=== PATIENT | female | born 1990 | race Caucasian/White ===

== ENCOUNTER → 2016-07-20 | Outpatient (CLI) | payer BC, OTHER | END | disposition home or self-care (01) | LOC: LABWHC1 16:45 | PROVIDERS: ATTEND Obstetrics & Gynecology | DX: N91.2 Amenorrhea, unspecified (principal) | CPT/HCPCS: 36415; 84702 ==

== ENCOUNTER 2016-07-31 21:39 | Emergency (ER) | payer BC, OTHER ==
[2016-07-31 22:23] VITALS: RESP 18
[2016-08-01 00:35] LABS: Appearance,Urine Cloudy (Clear); Bacteria,Urine Rare /hpf; Bilirubin,Urine Negative (Negative); Glucose,Urine (UA) Negative (Negative); Ketones,Urine Negative (Negative); Leukocyte Esterase,Urine Small (Negative); Mucus,Urine Rare /hpf; Nitrite,Urine Negative (Negative); PH, Urine 6.5 (5.0-8.0); Particle Count 4305; Protein,Urine Negative (Negative); RBC,Urine 1 /hpf (0-5); Specific Gravity,Urine 1.016 (1.001-1.035); Squamous Epithelial Cell,Urine 11 /hpf (0-4); UA Billing (MACRO vs. MICRO) MICRO; Urobilinogen,Urine <2.0 mg/dL (<2.0); WBC,Urine 3 /hpf (0-5)
[2016-08-01 00:40] LABS: Basophils % (A) 1 %; CH 30.3; CHCM 32.7; Eosinophils # (A) 0.2 k/uL (0-0.7); Eosinophils % (A) 3 %; HDW 2.37; HGB 13.8 gm/dL (11.4-16.0); Luc % (Auto) 1; Lymphocytes # (A) 1.9 k/uL (1.0-4.8); Lymphocytes % (A) 22 %; MCH 30.5 pg (25.0-35.0); MCHC 32.8 g/dL (31.0-37.0); MCV 92.8 fL (80.0-100.0); Monocytes # (A) 0.3 k/uL (0-1.0); Monocytes % (A) 4 %; Neutrophils % (A) 70 %; RBC 4.52 m/uL (3.80-5.40); RDW 13.4 % (11.5-15.5); WBC 8.5 k/uL (3.8-10.6)
[2016-08-01 00:50] LABS: Anion Gap 12 mmol/L; Blood Urea Nitrogen 8 mg/dL (7-17); Calcium 9.2 mg/dL (8.4-10.2); Carbon Dioxide 23 mmol/L (22-30); Chloride 102 mmol/L (98-107); Glucose 92 mg/dL (74-99); Non-African American GFR(MDRD) >60 (>60 ml/min/1.73 sqM); Potassium 4.1 mmol/L (3.5-5.1); Sodium 137 mmol/L (137-145)
--- NOTE | 2016-08-01 01:12 | US ---
EXAMINATION TYPE: US OB <=14 wks transvag DATE OF EXAM: 08/01/2016 1:00 AM COMPARISON: NONE CLINICAL HISTORY: Pain. spotting EXAM PERFORMED: Transvaginal (TV) and Transabdominal (TA) EXAM MEASUREMENTS: GESTATIONAL AGE / DATING Physician Established: Not established Dates by LMP: ( 6 weeks/4 days) EDC: 03/23/2017 Dates by First Scan: no previous Dates by Current Scan for: (5 weeks/1 days) by probable gestational sac only EDC: 04/02/2017 MATERNAL ANATOMY Uterus: 7.6 x 4.4 x 5.1 cm Right Ovary: 3.0 x 1.9 x 2.3 cm Left Ovary: 2.0 x 1.0 x 1.1 cm Post CDS / Adnexa: wnl Presence of free fluid: No Presence of corpus luteal cyst: Yes, right ovary measuring 1.7 x 1.3 x 1.6 cm Presence of subchorionic bleed: No GESTATION / SURVEY MSD: 1.07cm (5 weeks/1 days) Yolk Sac (normal less than 6mm): 2 mm IUP: No pole seen at this time, only probable early gestational sac and yolk sac Date of LMP: 06/16/2016 Beta HcG (if available): Not available at this time TECHNOLOGIST IMPRESSION: No pole seen at this time, only probable early gestational sac and yol k sac IMPRESSION: Findings consistent with early intrauterine with gestational age of 5 weeks 1 day. Follow-u p is recommended to confirm a living fetus in 14 days if clinically indicated.
--- NOTE | 2016-08-01 01:18 | ED ---
Abdominal Pain HPI - General Chief Complaint: Abdominal Pain Stated Complaint: 6wks Preg/Abdominal Pain,Spotting Time Seen by Provider: 08/01/16 00:04 Source: patient, RN notes reviewed, old records reviewed Mode of arrival: ambulatory Limitations: no limitations - History of Present Illness Initial Comments: Patient is a 25 year old with complaint of lower abdominal cramping and one day of spotting. Patient states that she is 6 weeks . Patient states that this is her 5th , she has 2 living children and 2 miscarraiges. Patient reports she sees Dr. Rey. She denies any other associated symptoms. Patient states that the cramping pain is diffuse, and not located on one side. Patient states that she has not had any ultrasounds. She has had blood work done 2 weeks ago, and hcg level was 130. She denies nausea, vomiting, diarrhea, dysuria. - Related Data Home Medications Medication Instructions Recorded Confirmed No Known Home Medications [No 07/31/16 07/31/16 Known Home Medications] Allergies Allergy/AdvReac Type Severity Reaction Status Date / Time No Known Allergies Allergy Verified 07/31/16 22:23 Review of Systems ROS Statement: Those systems with pertinent positive or pertinent negative responses have been documented in the HPI. ROS Other: All systems not noted in ROS Statement are negative. Past Medical History Past Medical History: No Reported History History of Any Multi-Drug Resistant Organisms: None Reported Additional Past Surgical History / Comment(s): D&C 2 Past Anesthesia/Blood Transfusion Reactions: No Reported Reaction Past Psychological History: Bipolar Additional Psychological History / Comment(s): not currently medicated Smoking Status: Former smoker Past Alcohol Use History: None Reported Past Drug Use History: None Reported - Past Family History Mother Family Medical History: Hypertension General Exam - General Exam Comments Initial Comments: Well appearing 25 year old female, no acute distress. Limitations: no limitations General appearance: alert, in no apparent distress Head exam: Present: atraumatic, normocephalic, normal inspection Eye exam: Present: normal appearance, PERRL, EOMI. Absent: scleral icterus, conjunctival injection, periorbital swelling ENT exam: Present: normal exam, mucous membranes moist Neck exam: Present: normal inspection. Absent: tenderness, meningismus, lymphadenopathy Respiratory exam: Present: normal lung sounds bilaterally. Absent: respiratory distress, wheezes, rales, rhonchi, stridor Cardiovascular Exam: Present: regular rate, normal rhythm, normal heart sounds. Absent: systolic murmur, diastolic murmur, rubs, gallop, clicks GI/Abdominal exam: Present: soft, normal bowel sounds. Absent: distended, tenderness, guarding, rebound, rigid External exam: Present: normal external exam Speculum exam: Present: normal speculum exam, erythema. Absent: vaginal discharge, cervical discharge, vaginal bleeding, foreign body Extremities exam: Present: normal inspection, full ROM, normal capillary refill. Absent: tenderness, pedal edema, joint swelling, calf tenderness Back exam: Present: normal inspection Neurological exam: Present: alert, oriented X3, CN II-XII intact Psychiatric exam: Present: normal affect, normal mood Skin exam: Present: warm, dry, intact, normal color. Absent: rash Course Vital Signs 07/31/16 08/01/16 22:20 02:04 Temperature 98.4 F 97.6 F Pulse Rate 74 80 Respiratory 18 18 Rate Blood Pressure 122/57 109/57 O2 Sat by Pulse 100 98 Oximetry Medical Decision Making - Medical Decision Making Patients lab work is reviewed to be negative. Patient [place] [address]. Patient speculum exam shows no spotting and cervix is closed. Patient will be given repeat hcg lab work in 2 days and advised to follow up with PCP. Transvaginal US shows IUP measuring 5 weeks, however heart tones were not detected. Patient Understands treatment plan and will comply. - Lab Data Result diagrams: 08/01/16 00:35 08/01/16 00:35 Lab Results 08/01/16 08/01/16 08/01/16 Range/Units 00:20 00:20 00:35 WBC 8.5 (3.8-10.6) k/uL RBC 4.52 (3.80-5.40) m/uL Hgb 13.8 (11.4-16.0) gm/dL Hct 42.0 (34.0-46.0) % MCV 92.8 (80.0-100.0) fL MCH 30.5 (25.0-35.0) pg MCHC 32.8 (31.0-37.0) g/dL RDW 13.4 (11.5-15.5) % Plt Count 267 (150-450) k/uL Neutrophils % 70 % Lymphocytes % 22 % Monocytes % 4 % Eosinophils % 3 % Basophils % 1 % Neutrophils # 6.0 (1.3-7.7) k/uL Lymphocytes # 1.9 (1.0-4.8) k/uL Monocytes # 0.3 (0-1.0) k/uL Eosinophils # 0.2 (0-0.7) k/uL Basophils # 0.0 (0-0.2) k/uL Sodium (137-145) mmol/L Potassium (3.5-5.1) mmol/L Chloride (98-107) mmol/L Carbon Dioxide (22-30) mmol/L Anion Gap mmol/L BUN (7-17) mg/dL Creatinine (0.52-1.04) mg/dL Est GFR (MDRD) Af Amer (>60 ml/min/1.73 sqM) Est GFR (MDRD) Non-Af (>60 ml/min/1.73 sqM) Glucose (74-99) mg/dL Calcium (8.4-10.2) mg/dL HCG, Quant mIU/mL Urine Color Yellow Urine Appearance Cloudy H (Clear) Urine pH 6.5 (5.0-8.0) Ur Specific [place] 1.016 (1.001-1.035) Urine Protein Negative (Negative) Urine Glucose (UA) Negative (Negative) Urine Ketones Negative (Negative) Urine Blood Negative (Negative) Urine Nitrate Negative (Negative) Urine Bilirubin Negative (Negative) Urine Urobilinogen <2.0 (<2.0) mg/dL Ur Leukocyte Esterase Small H (Negative) Urine RBC 1 (0-5) /hpf Urine WBC 3 (0-5) /hpf Ur Squamous Epith Cells 11 H (0-4) /hpf Urine Bacteria Rare H (None) /hpf Urine Mucus Rare H (None) /hpf Urine HCG, Qual Detected (Not Detectd) Blood Type Blood Type Recheck 08/01/16 08/01/16 08/01/16 Range/Units 00:35 00:35 00:35 WBC (3.8-10.6) k/uL RBC (3.80-5.40) m/uL Hgb (11.4-16.0) gm/dL Hct (34.0-46.0) % MCV (80.0-100.0) fL MCH (25.0-35.0) pg MCHC (31.0-37.0) g/dL RDW (11.5-15.5) % Plt Count (150-450) k/uL Neutrophils % % Lymphocytes % % Monocytes % % Eosinophils % % Basophils % % Neutrophils # (1.3-7.7) k/uL Lymphocytes # (1.0-4.8) k/uL Monocytes # (0-1.0) k/uL Eosinophils # (0-0.7) k/uL Basophils # (0-0.2) k/uL Sodium 137 (137-145) mmol/L Potassium 4.1 (3.5-5.1) mmol/L Chloride 102 (98-107) mmol/L Carbon Dioxide 23 (22-30) mmol/L Anion Gap 12 mmol/L BUN 8 (7-17) mg/dL Creatinine 0.60 (0.52-1.04) mg/dL Est GFR (MDRD) Af Amer >60 (>60 ml/min/1.73 sqM) Est GFR (MDRD) Non-Af >60 (>60 ml/min/1.73 sqM) Glucose 92 (74-99) mg/dL Calcium 9.2 (8.4-10.2) mg/dL HCG, Quant 32058.1 mIU/mL Urine Color Urine Appearance (Clear) Urine pH (5.0-8.0) Ur Specific [place] (1.001-1.035) Urine Protein (Negative) Urine Glucose (UA) (Negative) Urine Ketones (Negative) Urine Blood (Negative) Urine Nitrate (Negative) Urine Bilirubin (Negative) Urine Urobilinogen (<2.0) mg/dL Ur Leukocyte Esterase (Negative) Urine RBC (0-5) /hpf Urine WBC (0-5) /hpf Ur Squamous Epith Cells (0-4) /hpf Urine Bacteria (None) /hpf Urine Mucus (None) /hpf Urine HCG, Qual (Not Detectd) Blood Type O Positive Blood Type Recheck No - Radiology Data Radiology results: report reviewed US shows IUP measuring 5 weeks, without heartones detected. Advised repeat US in 2 weeks. Disposition Clinical Impression: Threatened miscarriage in early Disposition: HOME SELF-CARE Condition: Good Instructions: Threatened Miscarriage (ED) Additional Instructions: Patient instructed to follow-up with primary care provider and [employer] within the next week. Repeat blood work and 48 hours. Return to the EC if any alarming signs or symptoms occur. Referrals: None,Stated [Primary Care Provider] - 1-2 days Time of Disposition: 01:49
[2016-08-01 02:06] VITALS: BP 109/57; PULSE 80; TEMP 97.6
== END 2016-08-01 02:06 | disposition home or self-care (01) ==
LOC: EC 21:39
DX: O20.0 Threatened abortion (principal); Z87.891 Personal history of nicotine dependence
CPT/HCPCS: 36415; 76801; 76817; 80048; 81001; 81025; 84702; 85025; 86900; 86901; 99284

== ENCOUNTER → 2016-08-03 | Outpatient (CLI) | payer BC, OTHER | END | disposition home or self-care (01) | LOC: LABWHC1 16:16 | PROVIDERS: ATTEND Physician Assistant Medical | DX: O20.0 Threatened abortion (principal); Z3A.00 Weeks of gestation of pregnancy not specified | CPT/HCPCS: 36415; 84702 ==

== ENCOUNTER 2016-12-12 13:10 | Emergency (ER) | payer BC, OTHER ==
[2016-12-12] MEDS ORDERED: IPRATROPIUM-ALBUTEROL 3 ML NEB INHALATION STA (14:14)
--- NOTE | 2016-12-12 14:15 | ED ---
URI HPI - General Chief Complaint: Upper Respiratory Infection Stated Complaint: [facility] sent/Oxygen low Time Seen by Provider: 12/12/16 13:59 Source: patient, RN notes reviewed Mode of arrival: wheelchair Limitations: no limitations - History of Present Illness Initial Comments: Patient is a 26-year-old female presents to the emergency room for evaluation of cough. Patient states that she's had a cold since Saturday night. Patient states [facility] but he gave her an injection of a steroid and a breathing treatment. Patient states that her oxygen level was low so she was sent here for further evaluation. Patient does state she smokes daily. Patient denies taking control. Patient denies fevers or chills. Patient states she feels short of breath. Patient denies headache or dizziness. Patient denies nausea or vomiting. - Related Data Home Medications Medication Instructions Recorded Confirmed Albuterol Nebulized [Ventolin 2.5 mg INHALATION RT-QID PRN 12/12/16 12/12/16 Nebulized] Dm/Acetaminophen/Doxylamine [Vicks 1 cap PO Q6H PRN 12/12/16 12/12/16 Nyquil Liquicaps] Ipratropium Nebulized [Atrovent 0.5 mg INHALATION RT-QID PRN 12/12/16 12/12/16 Nebulized] Previous Rx's Medication Instructions Recorded Albuterol Nebulized [Ventolin 2.5 mg INHALATION Q6H PRN #30 nebu 12/12/16 Nebulized] Azithromycin [Zithromax Z-pack] 250 mg PO DIRECTED #6 tab 12/12/16 predniSONE 50 mg PO DAILY #5 tab 12/12/16 Allergies Allergy/AdvReac Type Severity Reaction Status Date / Time No Known Allergies Allergy Verified 12/12/16 14:16 Review of Systems ROS Statement: Those systems with pertinent positive or pertinent negative responses have been documented in the HPI. ROS Other: All systems not noted in ROS Statement are negative. Past Medical History Past Medical History: No Reported History History of Any Multi-Drug Resistant Organisms: None Reported Past Surgical History: No Surgical Hx Reported Additional Past Surgical History / Comment(s): D&C 2 Past Anesthesia/Blood Transfusion Reactions: No Reported Reaction Past Psychological History: Bipolar Smoking Status: Current every day smoker Past Alcohol Use History: Occasional Past Drug Use History: None Reported - Past Family History Mother Family Medical History: Hypertension General Exam - General Exam Comments Initial Comments: Sitting in exam room, no distress. Limitations: no limitations General appearance: alert, in no apparent distress Head exam: Present: atraumatic, normocephalic, normal inspection Eye exam: Present: normal appearance ENT exam: Present: normal exam Neck exam: Present: normal inspection Respiratory exam: Present: wheezes. Absent: respiratory distress Cardiovascular Exam: Present: regular rate, normal rhythm, normal heart sounds Extremities exam: Present: normal inspection Back exam: Present: normal inspection Neurological exam: Present: alert, oriented X3, CN II-XII intact, normal gait Psychiatric exam: Present: normal affect, normal mood Skin exam: Present: warm, dry, intact, normal color. Absent: rash Course Vital Signs 12/12/16 12/12/16 12/12/16 13:22 14:20 14:34 Temperature 99.0 F 98.8 F Pulse Rate 104 H 109 H 98 Respiratory 22 16 Rate Blood Pressure 124/79 132/71 O2 Sat by Pulse 100 96 Oximetry 12/12/16 12/12/16 14:40 15:16 Temperature 98.7 F Pulse Rate 102 H 98 Respiratory 18 Rate Blood Pressure 138/76 O2 Sat by Pulse 98 Oximetry Medical Decision Making - Medical Decision Making Patient is a 6-year-old female presents to the emergency room for reevaluation of cough. Patient's significant wheezing on auscultation. Patient states she is feeling better after breathing treatment. Chest x-ray shows no acute findings. Patient will be placed on prednisone, azithromycin and sent home with albuterol nebulizer. Advised patient to follow up with primary care provider in 24-48 hours reevaluation. Patient states she understands everything that was discussed with her. Return parameters discussed. Case discussed Dr. Martinez. - Radiology Data Radiology results: report reviewed, image reviewed Disposition Clinical Impression: Bronchitis Disposition: HOME SELF-CARE Condition: Good Instructions: Acute Bronchitis (ED) Additional Instructions: Take antibiotics as directed. Continue with nebulizer treatments every 4-6 hours. Please follow up with primary care provider in 1-2 days. If any new symptom arises or symptoms worsen, return to ER as soon as possible. Prescriptions: Albuterol Nebulized [Ventolin Nebulized] 2.5 mg INHALATION Q6H PRN #30 nebu PRN Reason: Shortness Of Breath Azithromycin [Zithromax Z-pack] 250 mg PO DIRECTED #6 tab predniSONE 50 mg PO DAILY #5 tab Referrals: None,Stated [Primary Care Provider] - 1-2 days Time of Disposition: 14:55
--- NOTE | 2016-12-12 14:40 | XR ---
EXAMINATION TYPE: XR chest 2V DATE OF EXAM: 12/12/2016 COMPARISON: NONE HISTORY: Cough and congestion for 2 days. TECHNIQUE: Frontal and lateral views of the chest are obtained. FINDINGS: There is no focal air space opacity, pleural effusion, or pneumothorax seen. The cardiac silhouette size is within normal limits. The osseous structures are intact. IMPRESSION: No suspicious acute infiltrate
[2016-12-12 15:17] VITALS: BP 138/76; PULSE 98; RESP 18; TEMP 98.7
== END 2016-12-12 15:16 | disposition home or self-care (01) ==
LOC: EC 13:10
DX: J40 Bronchitis, not specified as acute or chronic (principal); F17.200 Nicotine dependence, unspecified, uncomplicated
CPT/HCPCS: 71020; 94640; 99283

== ENCOUNTER → 2017-10-29 | Outpatient (CLI) | payer OTHER | END | disposition home or self-care (01) | LOC: LABWHC1 13:28 | PROVIDERS: ATTEND Obstetrics & Gynecology | DX: Z34.80 Encounter for supervision of other normal pregnancy, unspecified trimester (principal); Z3A.00 Weeks of gestation of pregnancy not specified | CPT/HCPCS: 36415; 84702 ==

== ENCOUNTER → 2017-10-31 | Outpatient (CLI) | payer OTHER | END | disposition home or self-care (01) | LOC: LABWHC1 13:37 | PROVIDERS: ATTEND Obstetrics & Gynecology | DX: Z34.80 Encounter for supervision of other normal pregnancy, unspecified trimester (principal) | CPT/HCPCS: 36415; 84702 ==

== ENCOUNTER → 2017-11-07 | Outpatient (CLI) | payer OTHER | END | disposition home or self-care (01) | LOC: LABWHC1 12:38 | PROVIDERS: ATTEND Obstetrics & Gynecology | DX: O03.9 Complete or unspecified spontaneous abortion without complication (principal) | CPT/HCPCS: 36415; 84702 ==

== ENCOUNTER → 2017-11-21 | Outpatient (CLI) | payer OTHER ==
--- NOTE | 2017-11-22 08:09 | US ---
EXAMINATION TYPE: US pelvic complete DATE OF EXAM: 11/21/2017 COMPARISON: NONE CLINICAL HISTORY: R10.2 pelvic pain. Pelvic pain during physical exam at doctors office yesterday, daniela michel states she had a recent miscarriage a couple weeks ago, 6, para 2, miscarriage 3, abort ion 1, history of D&C. TECHNIQUE: . Transabdominal sonographic images of the pelvis were acquired. Date of LMP: 09/17/2017 EXAM MEASUREMENTS: Uterus: 7.4 x 4.0 x 4.5 cm Endometrial Stripe: 0.6 cm Right Ovary: 2.7 x 1.7 x 2.1 cm Left Ovary: 2.8 x 1.9 x 2.0 cm 1. Uterus: anteverted, wnl 2. Endometrium: wnl 3. Right Ovary: wnl 4. Left Ovary: wnl 5. Bilateral Adnexa: wnl 6. Posterior cul-de-sac: small amount of free fluid Anteverted uterus is seen. Endometrium is not suspiciously thickened. Tiny amount of free fluid in pe lvic cul-de-sac is nonspecific finding seen best towards end of study. Both ovaries are identified and normal in size. No suspicious adnexal lesions are seen. IMPRESSION: No suspicious abnormality is present to account for patient's symptoms on transabdominal pelvic ultrasound images saved.
== END | disposition home or self-care (01) ==
LOC: RADUSMAIN 15:59
PROVIDERS: ATTEND Obstetrics & Gynecology
DX: R10.2 Pelvic and perineal pain (principal)
CPT/HCPCS: 76856

== ENCOUNTER 2018-02-16 17:47 | Emergency (ER) | payer OTHER ==
[2018-02-16] MEDS ORDERED: SODIUM CHLORIDE 0.9% 1,000 ML IV ONE (18:11)
[2018-02-16 18:48] LABS: Partial Thromboplastin Time 26.4 sec (22.0-30.0); Prothrombin Time 10.2 sec (9.0-12.0)
--- NOTE | 2018-02-16 19:22 | ED ---
General Adult HPI - General Chief complaint: Vaginal Bleeding Stated complaint: early preg/vaginal bleeding Time Seen by Provider: 02/16/18 18:11 Source: patient, RN notes reviewed, old records reviewed Mode of arrival: ambulatory Limitations: no limitations - History of Present Illness Initial comments: Patient is a 27-year-old female and states that she is a female presents today with the plan of intermittent vaginal bleeding for the past six weeks. She states that she believes she six weeks . Patient states that her last lady was a few days ago. She states that she has had no bleeding today. You put some minor abdominal cramping. - Related Data Home Medications Medication Instructions Recorded Confirmed Albuterol Nebulized [Ventolin 2.5 mg INHALATION RT-QID PRN 12/12/16 12/12/16 Nebulized] Dm/Acetaminophen/Doxylamine [Vicks 1 cap PO Q6H PRN 12/12/16 12/12/16 Nyquil Liquicaps] Ipratropium Nebulized [Atrovent 0.5 mg INHALATION RT-QID PRN 12/12/16 12/12/16 Nebulized] Previous Rx's Medication Instructions Recorded Albuterol Nebulized [Ventolin 2.5 mg INHALATION Q6H PRN #30 nebu 12/12/16 Nebulized] Azithromycin [Zithromax Z-pack] 250 mg PO DIRECTED #6 tab 12/12/16 predniSONE 50 mg PO DAILY #5 tab 12/12/16 Hma-Dxbn-Bhetd Acid 1 cap PO DAILY #20 cap 02/16/18 [-U Capsule (formulary)] Allergies Allergy/AdvReac Type Severity Reaction Status Date / Time No Known Allergies Allergy Verified 02/16/18 17:50 Review of Systems ROS Statement: Those systems with pertinent positive or pertinent negative responses have been documented in the HPI. ROS Other: All systems not noted in ROS Statement are negative. Constitutional: Denies: fever Eyes: Denies: eye pain Respiratory: Denies: cough, dyspnea Cardiovascular: Denies: chest pain Gastrointestinal: Reports: abdominal pain. Denies: nausea, vomiting Genitourinary: Denies: urgency, dysuria Past Medical History Past Medical History: No Reported History History of Any Multi-Drug Resistant Organisms: None Reported Past Surgical History: No Surgical Hx Reported Additional Past Surgical History / Comment(s): D&C 2 Past Anesthesia/Blood Transfusion Reactions: No Reported Reaction Past Psychological History: Bipolar Smoking Status: Former smoker Past Alcohol Use History: Occasional Past Drug Use History: None Reported - Past Family History Mother Family Medical History: Hypertension General Exam - General Exam Comments Initial Comments: Well appearing 27 year old female, no distress. Limitations: no limitations Head exam: Present: atraumatic, normocephalic, normal inspection Eye exam: Present: normal appearance, PERRL, EOMI. Absent: scleral icterus, conjunctival injection, periorbital swelling ENT exam: Present: normal exam, mucous membranes moist Neck exam: Present: normal inspection. Absent: tenderness, meningismus, lymphadenopathy Respiratory exam: Present: normal lung sounds bilaterally. Absent: respiratory distress, wheezes, rales, rhonchi, stridor Cardiovascular Exam: Present: regular rate, normal rhythm, normal heart sounds. Absent: systolic murmur, diastolic murmur, rubs, gallop, clicks GI/Abdominal exam: Present: soft, normal bowel sounds. Absent: distended, tenderness, guarding, rebound, rigid External exam: Present: normal external exam Speculum exam: Present: normal speculum exam. Absent: vaginal discharge By manual exam: Present: normal by manual exam. Absent: cervical motion tenderness Back exam: Present: normal inspection Neurological exam: Present: alert, oriented X3, CN II-XII intact Psychiatric exam: Present: normal affect, normal mood Skin exam: Present: warm, dry, intact, normal color. Absent: rash Course Vital Signs 02/16/18 02/16/18 17:49 20:58 Temperature 98.3 F 98.5 F Pulse Rate 70 61 Respiratory 20 18 Rate Blood Pressure 117/71 101/60 O2 Sat by Pulse 99 100 Oximetry Medical Decision Making - Medical Decision Making 27 year old adriane with intermittent vaginal bleeding and spotting presents with abdominal cramping. She has no recent bleeding. She believes she is 6 weeks . Previous blood type is O positive. She has no bleeding on pelvic exam today. US shows IUP measuring 6 weeks. No concern at miscarraige at this time. Discussed needing vitamins and close follow up with OBGYN. Hcg is 68,000. REturn parameters discussed. - Lab Data Lab Results 02/16/18 02/16/18 02/16/18 Range/Units 18:23 18:23 18:23 PT 10.2 (9.0-12.0) sec INR 1.0 (<1.2) APTT 26.4 (22.0-30.0) sec HCG, Quant 89454.7 mIU/mL Urine Color Yellow Urine Appearance Cloudy H (Clear) Urine pH 6.5 (5.0-8.0) Ur Specific [place] 1.021 (1.001-1.035) Urine Protein Negative (Negative) Urine Glucose (UA) Negative (Negative) Urine Ketones Negative (Negative) Urine Blood Negative (Negative) Urine Nitrite Negative (Negative) Urine Bilirubin Negative (Negative) Urine Urobilinogen <2.0 (<2.0) mg/dL Ur Leukocyte Esterase Moderate H (Negative) Urine RBC 1 (0-5) /hpf Urine WBC 3 (0-5) /hpf Ur Squamous Epith Cells 7 H (0-4) /hpf Urine Mucus Rare H (None) /hpf Trichomonas Ag (Rapid) (Negative) 02/16/18 Range/Units 18:41 PT (9.0-12.0) sec INR (<1.2) APTT (22.0-30.0) sec HCG, Quant mIU/mL Urine Color Urine Appearance (Clear) Urine pH (5.0-8.0) Ur Specific [place] (1.001-1.035) Urine Protein (Negative) Urine Glucose (UA) (Negative) Urine Ketones (Negative) Urine Blood (Negative) Urine Nitrite (Negative) Urine Bilirubin (Negative) Urine Urobilinogen (<2.0) mg/dL Ur Leukocyte Esterase (Negative) Urine RBC (0-5) /hpf Urine WBC (0-5) /hpf Ur Squamous Epith Cells (0-4) /hpf Urine Mucus (None) /hpf Trichomonas Ag (Rapid) Negative (Negative) - Radiology Data Radiology results: report reviewed Single IUP measuring 6 weeks and 5 days, Hr 126. Disposition Clinical Impression: 6 weeks gestation of Disposition: HOME SELF-CARE Condition: Good Instructions: (ED) Additional Instructions: Patient has follow-up with primary care physician. Return to emergency department if any alarming signs or symptoms occur. Prescriptions: Cqd-Enig-Micky Acid [-U Capsule (formulary)] 1 cap PO DAILY # 20 cap Is patient prescribed a controlled substance at d/c from ED?: No Referrals: None,Stated [Primary Care Provider] - 1-2 days Beth Rey DO [Doctor of Osteopathic Medicine] - 1-2 days Time of Disposition: 20:37
[2018-02-16 19:27] LABS: Appearance,Urine Cloudy (Clear); Bilirubin,Urine Negative (Negative); Blood,Urine Negative (Negative); Color,Urine Yellow; Glucose,Urine (UA) Negative (Negative); Ketones,Urine Negative (Negative); Leukocyte Esterase,Urine Moderate (Negative); Mucus,Urine Rare /hpf; Nitrite,Urine Negative (Negative); PH, Urine 6.5 (5.0-8.0); Protein,Urine Negative (Negative); RBC,Urine 1 /hpf (0-5); Specific Gravity,Urine 1.021 (1.001-1.035); Squamous Epithelial Cell,Urine 7 /hpf (0-4); Urobilinogen,Urine <2.0 mg/dL (<2.0); WBC,Urine 3 /hpf (0-5)
--- NOTE | 2018-02-16 20:15 | US ---
EXAMINATION TYPE: Transabdominal DATE OF EXAM: 09/24/17 COMPARISON: NONE CLINICAL HISTORY: Pain. Pt states spotting EXAM PERFORMED: Transabdominal (TA) EXAM MEASUREMENTS: GESTATIONAL AGE / DATING Physician Established: Not yet established Dates by LMP: (7 weeks/0 days) EDC: 10/05/2018 Dates by First Scan: No prior Dates by Current Scan for: (6 weeks/5 days) EDC: 10/07/2018 MATERNAL ANATOMY Uterus: 10.1 x 5.2 x 5.2 cm Right Ovary: 1.7 x 1.6 x 1.8 cm Left Ovary: 2.7 x 2.4 x 2.6 cm Post CDS / Adnexa: wnl Presence of free fluid: No Presence of corpus luteal cyst: Left Ovary= 2.1 x 1.5 x 1.7 cm Presence of subchorionic bleed: No GESTATION / SURVEY CRL: 0.8 cm (6 weeks/5 days) MSD: wnl Yolk Sac (normal less than 6mm): 2mm Heart Rate: 126 bpm Rhythm: Normal IUP: Viable IUP IMPRESSION: Single viable intrauterine .
[2018-02-16 20:58] VITALS: BP 101/60; PULSE 61; RESP 18; TEMP 98.5
[2018-02-18 14:51] LABS: C. trachomatis,PCR Negative (Neg,Equiv); Chlamydia trachomatis Source Urine
[2018-02-18 15:10] LABS: N. gonorrhoeae,PCR Negative (Neg,Equiv); Neisseria Source Urine
== END 2018-02-16 20:58 | disposition home or self-care (01) ==
LOC: EC 17:47
DX: O20.9 Hemorrhage in early pregnancy, unspecified (principal); Z3A.01 Less than 8 weeks gestation of pregnancy; Z87.891 Personal history of nicotine dependence; Z79.899 Other long term (current) drug therapy
CPT/HCPCS: 36415; 76801; 81001; 84702; 85610; 85730; 87070; 87205; 87491; 87591; 87808; 96360; 99284

== ENCOUNTER → 2018-03-19 | Outpatient (CLI) | payer OTHER ==
--- NOTE | 2018-03-19 09:55 | US ---
EXAMINATION TYPE: Transabdominal DATE OF EXAM: 09/24/17 COMPARISON: US CLINICAL HISTORY: Z36 Confirm dates and viability. ; prior smoker EXAM PERFORMED: Transabdominal (TA) EXAM MEASUREMENTS: GESTATIONAL AGE / DATING Physician Established: (11 weeks/3 days) EDC: 10/05/2018 Dates by LMP: (11 weeks/3 days) EDC: 10/05/2018 Dates by First Scan: (11 weeks/1 day) EDC: 10/07/2018 Dates by Current Scan for: (11 weeks/3 days) EDC: 10/05/2018 MATERNAL ANATOMY Uterus: 12.7 x 8.7 x 6.5cm Right Ovary: not seen Left Ovary: 3.8 x 3.0 x 2.1cm Post CDS / Adnexa: wnl Presence of free fluid: no Presence of corpus luteal cyst: in left ovary = 2.0 x 1.6 x 1.5cm Presence of subchorionic bleed: no GESTATION / SURVEY CRL: 4.6cm (11 weeks/3 days) Yolk Sac (normal less than 6mm): not seen Heart Rate: 159 bpm Rhythm: normal IUP: single Date of LMP: 12/29/2017 Beta HcG (if available): NA IMPRESSION: Single, live IUP,11 weeks/3 days, EDC: 10/05/2018, HR 159bpm.
== END ==
LOC: RADUSWWP 08:55
PROVIDERS: ATTEND Obstetrics & Gynecology
DX: Z36.89 Encounter for other specified antenatal screening (principal); Z3A.11 11 weeks gestation of pregnancy
CPT/HCPCS: 76801

== ENCOUNTER 2018-04-27 14:23 | Emergency (ER) | payer OTHER ==
[2018-04-27 14:41] VITALS: TEMP 98.6
[2018-04-27] MEDS ORDERED: methylPREDNISolone SOD SUCCI 125 MG/2 ML VIAL IM ONE (15:20)
[2018-04-27] MEDS ORDERED: ALBUTEROL NEBULIZED 2.5 MG/3 ML INHALATION STA ×2 (15:22→16:25)
--- NOTE | 2018-04-27 15:29 | ED ---
General Adult HPI - General Chief complaint: Shortness of Breath Stated complaint: GRISELDA/17weeks Time Seen by Provider: 04/27/18 14:45 Source: patient, RN notes reviewed Mode of arrival: ambulatory Limitations: no limitations - History of Present Illness Initial comments: 27-year-old 17 week female presents to the emergency department for a chief complaint of cough and shortness of breath. Patient has had a cough for about 3 days. She has also had a sore throat and congestion. She states she started to develop shortness of breath yesterday. She states she has had these symptoms before. She states she has not been officially diagnosed with asthma but does have breathing problems and has a breathing machine at home. Patient states she was seen at [facility] today and given a breathing treatment. She denies any fevers or chills. She states she does have mild chest pain with deep inspiration. Patient has no other complaints at this time including abdominal pain, nausea or vomiting, headache, or visual changes. - Related Data Home Medications Medication Instructions Recorded Confirmed Albuterol Nebulized [Ventolin 2.5 mg INHALATION RT-QID PRN 12/12/16 12/12/16 Nebulized] Dm/Acetaminophen/Doxylamine [Vicks 1 cap PO Q6H PRN 12/12/16 12/12/16 Nyquil Liquicaps] Ipratropium Nebulized [Atrovent 0.5 mg INHALATION RT-QID PRN 12/12/16 12/12/16 Nebulized] Previous Rx's Medication Instructions Recorded Albuterol Nebulized [Ventolin 2.5 mg INHALATION Q6H PRN #30 nebu 12/12/16 Nebulized] Azithromycin [Zithromax Z-pack] 250 mg PO DIRECTED #6 tab 12/12/16 predniSONE 50 mg PO DAILY #5 tab 12/12/16 Dhw-Osbi-Ozmyk Acid 1 cap PO DAILY #20 cap 02/16/18 [-U Capsule (formulary)] Allergies Allergy/AdvReac Type Severity Reaction Status Date / Time No Known Allergies Allergy Verified 04/27/18 14:41 Review of Systems ROS Statement: Those systems with pertinent positive or pertinent negative responses have been documented in the HPI. ROS Other: All systems not noted in ROS Statement are negative. Past Medical History Past Medical History: No Reported History History of Any Multi-Drug Resistant Organisms: None Reported Past Surgical History: No Surgical Hx Reported Additional Past Surgical History / Comment(s): D&C 2 Past Anesthesia/Blood Transfusion Reactions: No Reported Reaction Past Psychological History: Bipolar Smoking Status: Former smoker Past Alcohol Use History: None Reported Past Drug Use History: None Reported - Past Family History Mother Family Medical History: Hypertension General Exam Limitations: no limitations General appearance: alert, in no apparent distress Head exam: Present: atraumatic, normocephalic, normal inspection Eye exam: Present: normal appearance, PERRL, EOMI. Absent: scleral icterus, conjunctival injection, periorbital swelling ENT exam: Present: normal exam, normal oropharynx, mucous membranes moist, TM's normal bilaterally, normal external ear exam Neck exam: Present: normal inspection, full ROM. Absent: tenderness, meningismus, lymphadenopathy Respiratory exam: Present: normal lung sounds bilaterally, wheezes (Wheezing noted throughout left upper and lower lung cristobal as well as right lower lung field), chest wall tenderness (Patient does have reproducible tenderness with palpation of the anterior chest wall). Absent: respiratory distress, rales, rhonchi, stridor Cardiovascular Exam: Present: regular rate, normal rhythm, normal heart sounds. Absent: systolic murmur, diastolic murmur, rubs, gallop, clicks Neurological exam: Present: alert, oriented X3, CN II-XII intact Psychiatric exam: Present: normal affect, normal mood Course Vital Signs 04/27/18 04/27/18 04/27/18 14:38 15:28 15:34 Temperature 98.6 F Pulse Rate 102 H 98 102 H Respiratory 20 Rate Blood Pressure 134/78 O2 Sat by Pulse 94 L Oximetry 04/27/18 04/27/18 04/27/18 16:30 16:42 17:11 Temperature Pulse Rate 92 96 109 H Respiratory 18 Rate Blood Pressure 148/74 O2 Sat by Pulse 95 Oximetry Medical Decision Making - Medical Decision Making 27 year old female presents to the emergency department for a chief complaint of shortness of breath for one day. She states this started last night. She states that she has had a cough for about 3 days along with a sore throat and congestion. Sore throat is resolving at this time. Patient states she has never had an official diagnosis of asthma but has been told by many providers that she likely does have asthma. She states she has a nebulizer at home and has had "breathing problems" quite often. Patient states the symptoms are consistent with her previous symptoms. She states she feels wheezing. Patient states she has a DuoNeb at home. She says her into the clinic today to have a DuoNeb it did not help. The patient presents to the emergency department she has 94% on room air with a pulse rate of 102. She is not having respiratory distress. She is speaking in full sentences and appears comfortable. She is not tachypneic. On exam patient does have diffuse wheezing noted throughout the lung cristobal. Patient was given 2 albuterol treatments as well as Solu- Medrol. Chest x-ray negative. At this time patient states she is feeling significantly better. She states she feels comfortable going home. Patient is up to 98% on room air when I am in the room. She states she will continue her breathing treatments at home and follow up with her doctor in the next couple days. She voices understanding that she is to return here immediately if she has any worsening symptoms or worsening shortness of breath. Disposition Clinical Impression: Shortness of breath Disposition: HOME SELF-CARE Condition: Good Instructions: Asthma (ED) Additional Instructions: Please follow up with primary care or [facility] in 1-2 days. Continue breathing treatments at home. Return here to the ER immediately if you have worsening symptoms. Is patient prescribed a controlled substance at d/c from ED?: No Referrals: Blade Crisostomo MD [REFERRING] - 1-2 days Time of Disposition: 17:13
--- NOTE | 2018-04-27 15:53 | XR ---
EXAMINATION TYPE: XR chest 2V DATE OF EXAM: 04/27/2018 COMPARISON: 12/12/2016 INDICATION: Pain difficulty breathing TECHNIQUE: Frontal and lateral views of the chest are obtained. FINDINGS: The heart size is normal. The pulmonary vasculature is normal. The lungs are clear. IMPRESSION: 1. No acute pulmonary process.
[2018-04-27 17:12] VITALS: BP 148/74; PULSE 109; RESP 18
== END 2018-04-27 17:32 | disposition home or self-care (01) ==
LOC: EC 14:23
DX: O99.89 Other specified diseases and conditions complicating pregnancy, childbirth and the puerperium (principal); R06.02 Shortness of breath; R06.2 Wheezing; R05 Cough; J02.9 Acute pharyngitis, unspecified; R07.9 Chest pain, unspecified; R09.89 Other specified symptoms and signs involving the circulatory and respiratory systems; Z87.891 Personal history of nicotine dependence; Z3A.17 17 weeks gestation of pregnancy
CPT/HCPCS: 94640 ×2; 71046; 99285; 96372; J2930

== ENCOUNTER 2018-10-02 06:00 | Inpatient (IN) | payer OTHER ==
--- NOTE | 2018-10-01 20:41 | P.HPOB ---
History of Present Illness H&P Date: 10/01/18 Chief Complaint: Induction of labor This is a 28-year-old female 7 para 2 with an estimated date of confinement of 10/05/2018, estimated gestational age of 39-4/7 weeks, who presents to labor and delivery for induction of labor. She admits to good movement. She has been feeling frequent irregular contractions. course has been essentially uncomplicated. labs: Hepatitis B surface antigen-negative RPR-nonreactive Rubella-immune Blood type-O+ Antibody screen-negative HIV-nonreactive Hemoglobin-12.5 Random glucose-87 One hour Glucola-84 Group B streptococcus-negative Obstetrical history: . History of 2 vaginal deliveries, 1 at 36 weeks due to mild preeclampsia and intrauterine growth restriction and 1 at 39 weeks with threatened premature labor. She has a history of 3 miscarriages and 1 termination of . Gynecologic history: No history of sexual transmitted diseases. Social history: She is . She is currently unemployed. Review of Systems Constitutional: Denies chills, Denies fever Eyes: denies blurred vision, denies pain Ears, nose, mouth and throat: Denies headache, Denies sore throat Cardiovascular: Denies chest pain, Denies shortness of breath Respiratory: Denies cough Gastrointestinal: Reports abdominal pain (Irregular contractions) Genitourinary: Reports pelvic pain, Reports Musculoskeletal: Reports low back pain Integumentary: Denies pruritus, Denies rash Neurological: Denies numbness, Denies weakness Past Medical History Past Medical History: No Reported History History of Any Multi-Drug Resistant Organisms: None Reported Additional Past Surgical History / Comment(s): D&C 2 Past Anesthesia/Blood Transfusion Reactions: No Reported Reaction Past Psychological History: Bipolar Smoking Status: Former smoker Past Alcohol Use History: None Reported Past Drug Use History: None Reported - Past Family History Mother Family Medical History: Hypertension Medications and Allergies Home Medications Medication Instructions Recorded Confirmed Type Xnn-Hxre-Sbjsf Acid 1 cap PO DAILY #20 cap 02/16/18 Rx [-U Capsule (formulary)] Albuterol Sulfate [Proair Hfa] 2 puff INHALATION QID PRN 10/01/18 10/01/18 History Allergies Allergy/AdvReac Type Severity Reaction Status Date / Time No Known Allergies Allergy Verified 04/27/18 14:41 Exam Osteopathic Statement: *. No significant issues noted on an osteopathic structural exam other than those noted in the History and Physical/Consult. HEENT: Within normal limits Heart: Regular rate and rhythm Lungs: Clear to auscultation bilaterally Abdomen: Cervix: 3 cm/70%/-2 heart tones: 140s by Doppler Extremities: Negative Homans Assessment and Plan (1) 39 weeks gestation of Status: Acute Code(s): Z3A.39 - 39 WEEKS GESTATION OF SNOMED Code(s): 12827222 (2) Group B Streptococcus carrier, +RV culture, currently Status: Acute Code(s): O99.820 - STREPTOCOCCUS B CARRIER STATE COMPLICATING SNOMED Code(s): 1093962814535 Plan: Proceed with oxytocin induction of labor. Antibiotic prophylaxis for history of group B streptococcus. Expectant management.
[2018-10-02 06:25] VITALS: BMI 44.9
[2018-10-02] MEDS ORDERED: LIDOCAINE 1% 20 ML VIAL (10MG/ML) FOR IV START INTRADERMA PRN (06:25)
[2018-10-02] MEDS ORDERED: LIDOCAINE 0.5% (PF) 5 MG/ML (50 ML SDV) SQ PRN (06:25)
[2018-10-02] MEDS ORDERED: TERBUTALINE 1 MG/ML VIAL SQ PRN (06:25)
[2018-10-02] MEDS ORDERED: OXYTOCIN 30 UNITS/500 ML NS 30 UNIT in SALINE 1 500ML.BAG IV SCH (06:25)
[2018-10-02] MEDS ORDERED: AMPICILLIN 2,000 MG in SODIUM CHLORIDE 0.9% 100 ML IVPB STA (06:25)
[2018-10-02] MEDS ORDERED: CARBOPROST TROMETHAMINE 250 MCG/ML 1 ML AMP IM PRN (06:25)
[2018-10-02] MEDS ORDERED: METHYLERGONOVINE 0.2 MG/ML 1 ML AMP IM PRN (06:25)
[2018-10-02] MEDS ORDERED: LACTATED RINGERS 1,000 ML IV SCH (06:25)
[2018-10-02] MEDS ORDERED: OXYTOCIN 10 UNIT/ML 1 ML VIAL IM PRN (06:25)
[2018-10-02 06:59] LABS: Basophils % (A) 0 %; Eosinophils # (A) 0.1 k/uL (0-0.7); Eosinophils % (A) 1 %; HCT 34.6 % (34.0-46.0); Lymphocytes # (A) 1.5 k/uL (1.0-4.8); Lymphocytes % (A) 22 %; MCH 28.7 pg (25.0-35.0); MCHC 31.8 g/dL (31.0-37.0); MCV 90.4 fL (80.0-100.0); Mean Platelet Volume 9.6; Monocytes # (A) 0.4 k/uL (0-1.0); Monocytes % (A) 6 %; Neutrophils # (A) 4.6 k/uL (1.3-7.7); Neutrophils % (A) 68 %; Platelet Count 222 k/uL (150-450); RBC 3.83 m/uL (3.80-5.40); RDW 13.7 % (11.5-15.5); WBC 6.8 k/uL (3.8-10.6)
[2018-10-02] MEDS ORDERED: SODIUM CHLORIDE 0.9% 100 ML BAG ONE (09:19)
[2018-10-02] MEDS ORDERED: ROPIVACAINE 5MG/ML 20ML VIAL ONE (09:19)
[2018-10-02] MEDS ORDERED: fentaNYL (PF) 50 MCG/ML 5 ML AMP ONE (09:19)
[2018-10-02] MEDS ORDERED: AMPICILLIN 1,000 MG in SODIUM CHLORIDE 0.9% 50 ML IVPB SCH (10:25)
[2018-10-02] MEDS ORDERED: diphenhydrAMINE 50 MG/ML 1 ML VIAL IVP PRN ×2 (11:50)
[2018-10-02] MEDS ORDERED: SIMETHICONE 80 MG CHEWABLE PO PRN (11:50)
[2018-10-02] MEDS ORDERED: LANOLIN CREAM 5 GM TUBE TOPICAL PRN (11:50)
[2018-10-02] MEDS ORDERED: diphenhydrAMINE 50 MG CAP PO PRN (11:50)
[2018-10-02] MEDS ORDERED: BENZOCAINE/MENTHOL SPRAY 1 GM/SPRAY AEROSOL TOPICAL PRN (11:50)
[2018-10-02] MEDS ORDERED: diphenhydrAMINE 25 MG CAP PO PRN (11:50)
[2018-10-02] MEDS ORDERED: OXYTOCIN 20 UNITS/1000 ML NS 1,000 ML IV SCH (11:50)
[2018-10-02] MEDS ORDERED: ZOLPIDEM 5 MG TAB PO PRN (11:50)
[2018-10-02] MEDS ORDERED: WITCH HAZEL 1 EACH MED..PAD TOPICAL PRN (11:50)
[2018-10-02] MEDS ORDERED: HYDROCORTISONE 2.5% RECTAL CREAM 30 GM TUBE RECTAL PRN (11:50)
[2018-10-02] MEDS ORDERED: ALBUTEROL NEBULIZED 2.5 MG/3 ML INHALATION PRN (11:50)
[2018-10-02] MEDS: IBUPROFEN 600 MG TAB PO PRN ×2 (12:16→20:28)
--- NOTE | 2018-10-02 13:24 | P.PROBDLV ---
Vaginal Delivery Note - . Vaginal Delivery Note: The patient progressed to complete dilation after oxytocin induction of labor and artificial rupture membranes with clear fluid noted. She did receive epidural anesthesia. She was also given ampicillin for history of group B strep positive but negative during this . Once reaching complete, she began pushing. Infant's head came to a crown. With one further push, the 's head delivered across the perineum in a left occiput anterior lie followed by t he anterior shoulder. Nose and mouth were bulb suctioned. With one remaining push, the remainder the infant easily delivered and was placed on mother's abdomen. Cord was clamped and cut and infant was taken to warmer for evaluation. A viable female was noted with scores of 9 at 1 minute and 9 at 5 minutes and weight of 7 pounds 2.6 ounces. Placenta delivered shortly thereafter, intact, with a three-vessel cord. Uterus contracted well after oxytocin was given and uterine massage was carried out. Inspection of the perineum revealed no perineal lacerations. Estimated blood loss is approximately 100 mL's. Both mother and infant are in stable condition.
[2018-10-02] MEDS: ACETAMINOPHEN TAB 325 MG TAB PO PRN (16:37)
[2018-10-02] MEDS: SENNOSIDES-DOCUSATE SODIUM 1 EACH TAB PO SCH (20:28)
[2018-10-03] MEDS: ACETAMINOPHEN TAB 325 MG TAB PO PRN ×4 (00:07→20:16)
[2018-10-03] MEDS: SENNOSIDES-DOCUSATE SODIUM 1 EACH TAB PO SCH ×2 (08:14→21:57)
--- NOTE | 2018-10-03 08:42 | P.DS ---
Providers Date of admission: 10/02/18 06:00 Expected date of discharge: 10/03/18 Attending physician: Beth Rey Primary care physician: Stated None - Discharge Diagnosis(es) (1) 39 weeks gestation of Current Visit: No Status: Acute (2) Group B Streptococcus carrier, +RV culture, currently Current Visit: No Status: Acute Hospital Course: This is a 28-year-old female 7 para 2 who presented at 39-4/7 weeks for induction of labor. She underwent oxytocin induction of labor and delivered vaginally a viable female infant on 10/02/2018 with scores of 9 at 1 minute and 9 at 5 minutes and infant weight of 7 pounds 2.6 ounces. Her course has been uncomplicated. Lochia is decreasing. Her pain is fairly well controlled with ibuprofen and Tylenol. She is out of feeding. Vital signs are stable. Abdomen is soft with fundus firm and nontender. Extremities show negative Homans. Impression is status post vaginal delivery day #1. Plan is to discharge home today. Routine instructions are given. She is advised to call the office if she has any further questions or concerns prior to her point in time. She is advised to follow up in the office in 6 weeks. She will be given a prescription for ibuprofen. Procedures: Oxytocin induction of labor Spontaneous vaginal delivery of a viable female on 10/02/2018 Patient Condition at Discharge: Stable Plan - Discharge Summary Discharge Rx Participant: Yes New Discharge Prescriptions: New Ibuprofen [Motrin] 600 mg PO Q6HR PRN #60 tab PRN Reason: Mild Pain Or Fever >= 100.5 Continue Tao-Ghwh-Bbddn Acid [-U Capsule (formulary)] 1 cap PO DAILY #20 cap Albuterol Sulfate [Proair Hfa] 2 puff INHALATION QID PRN PRN Reason: Wheezing Discharge Medication List Oqu-Kptx-Zluyw Acid [-U Capsule (formulary)] 1 cap PO DAILY #20 cap 02/16/18 [Rx] Albuterol Sulfate [Proair Hfa] 2 puff INHALATION QID PRN 10/01/18 [History] Ibuprofen [Motrin] 600 mg PO Q6HR PRN #60 tab 10/03/18 [Rx] Follow up Appointment(s)/Referral(s): Rey,Beth, DO [Doctor of Osteopathic Medicine] - 6 Weeks Activity/Diet/Wound Care/Special Instructions: Instructions 1. Do not begin any exercise program for 3 weeks. 2. Do not resume sexual relations for 3 weeks or longer if uncomfortable. 3. You may take tub baths or showers at any time. 4. You may use tampons if desired after 3 weeks. 5. Keep the area of episiotomy (stitches) clean and dry. 6. If you are not nursing, wear a good fitting, supportive bra during the day and limit fluid intake for at least 1 week to prevent breast engorgement. 7. Call the office, [phone], within the next week to make appointment for your 6 week checkup if it has not already been made. 8. Report any of the following occurrences to the doctor promptly: a. Heavy, excessive bleeding b. Chills, fever c. Burning or frequency of urination d. Pain or redness and breasts if nursing e. Increasing pain or swelling in episiotomy (stitches). In addition to the above instructions, the following additional should be followed: 1. No heavy lifting or straining (exercising) until after 6 week checkup. 2. Keep abdominal incision clean and dry: You may wear a dressing if more comfortable. 3. Make office appointment for 10 days after going home or as instructed by her doctor. Discharge Disposition: HOME SELF-CARE
[2018-10-03 08:45] LABS: Basophils % (A) 0 %; Eosinophils # (A) 0.1 k/uL (0-0.7); Eosinophils % (A) 1 %; HCT 33.1 % (34.0-46.0); HGB 10.5 gm/dL (11.4-16.0); Lymphocytes # (A) 1.6 k/uL (1.0-4.8); Lymphocytes % (A) 18 %; MCH 28.4 pg (25.0-35.0); MCHC 31.6 g/dL (31.0-37.0); MCV 89.9 fL (80.0-100.0); Mean Platelet Volume 9.8; Monocytes # (A) 0.4 k/uL (0-1.0); Monocytes % (A) 4 %; Neutrophils # (A) 6.3 k/uL (1.3-7.7); Neutrophils % (A) 74 %; Platelet Count 200 k/uL (150-450); RBC 3.68 m/uL (3.80-5.40); RDW 13.8 % (11.5-15.5); WBC 8.4 k/uL (3.8-10.6)
[2018-10-03] MEDS: IBUPROFEN 600 MG TAB PO PRN ×2 (18:05→23:33)
--- NOTE | 2018-10-04 08:11 | P.PNOBGVD ---
Subjective - Subjective Patient reports: Reports appetite normal, Reports voiding normally, Reports pain well controlled, Reports ambulating normally : doing well Objective - Latest Vital Signs Latest vital signs: Vital Signs Temp Pulse Resp BP Pulse Ox 10/04/18 00:00 98.5 F 70 16 148/53 10/03/18 15:35 98.5 F 61 15 127/77 96 Intake and Output 10/03/18 10/04/18 10/04/18 22:59 06:59 14:59 Other: # Voids 2 - Exam Lungs: bilateral: normal Chest: Normal S1, Normal S2 Extremities: Present: normal Abdomen: Present: normal appearance, soft Uterus: Present: normal, firm - Labs Labs: Abnormal Lab Results - Last 24 Hours (Table) 10/03/18 Range/Units 08:26 RBC 3.68 L (3.80-5.40) m/uL Hgb 10.5 L (11.4-16.0) gm/dL Hct 33.1 L (34.0-46.0) % Assessment and Plan Assessment: Post day #2. Patient initially was discharged home yesterday but decided to stay as her baby required phototherapy. She continues to well without complaints. Vital signs are stable and she is afebrile. Plan is to continue routine care and discharge home today (1) Vaginal delivery Current Visit: No Status: Acute Code(s): STI0679 - SNOMED Code(s): 600115948
[2018-10-04 10:10] VITALS: BP 139/68; PULSE 74; RESP 18; TEMP 98.4
[2018-10-04] MEDS: IBUPROFEN 600 MG TAB PO PRN (11:22)
[2018-10-04] MEDS: SENNOSIDES-DOCUSATE SODIUM 1 EACH TAB PO SCH (11:24)
== END 2018-10-04 15:50 | disposition home or self-care (01) | DRG 807 ==
LOC: 4FBP 06:00
PROVIDERS: ADMIT Obstetrics & Gynecology; ATTEND Obstetrics & Gynecology
PROC: 10E0XZZ Delivery of Products of Conception, External Approach (ICD-10-PCS; principal; 2018-10-02)
PROC: 3E033VJ Introduction of Other Hormone into Peripheral Vein, Percutaneous Approach (ICD-10-PCS; 2018-10-02)
PROC: 10907ZC Drainage of Amniotic Fluid, Therapeutic from Products of Conception, Via Natural or Artificial Opening (ICD-10-PCS; 2018-10-02)
PROC: 00HU33Z Insertion of Infusion Device into Spinal Canal, Percutaneous Approach (ICD-10-PCS; 2018-10-02)
PROC: 3E0R3BZ Introduction of Anesthetic Agent into Spinal Canal, Percutaneous Approach (ICD-10-PCS; 2018-10-02)
DX: O99.824 Streptococcus B carrier state complicating childbirth (principal); Z37.0 Single live birth; O99.344 Other mental disorders complicating childbirth; F31.9 Bipolar disorder, unspecified; O99.52 Diseases of the respiratory system complicating childbirth; J45.909 Unspecified asthma, uncomplicated; Z3A.39 39 weeks gestation of pregnancy; Z79.899 Other long term (current) drug therapy; Z87.891 Personal history of nicotine dependence; Z82.49 Family history of ischemic heart disease and other diseases of the circulatory system
CPT/HCPCS: 85025; 86850; 86870; 86880; 86900; 86901; 86902

== ENCOUNTER 2018-11-25 06:31 | Day surgery (SDC) | payer OTHER ==
[2018-11-21 18:26] VITALS: BMI 39.0
--- NOTE | 2018-11-24 17:57 | P.HPOB ---
History of Present Illness H&P Date: 11/24/18 Chief Complaint: Family planning This is a 28-year-old female 7 para 3 who presents for laparoscopic bilateral tubal ligation via fulguration for family planning. She recently delivered her last child and would like permanent sterilization. Obstetrical history: . History of 3 vaginal deliveries at term. History of 3 miscarriages and 1 termination. Gynecologic history: No history of sexually transmitted diseases. Social history: She is . She is not currently working outside of the home. Review of Systems Constitutional: Denies chills, Denies fever Eyes: denies blurred vision, denies pain Ears, nose, mouth and throat: Denies headache, Denies sore throat Cardiovascular: Denies chest pain, Denies shortness of breath Respiratory: Denies cough Gastrointestinal: Denies abdominal pain, Denies diarrhea, Denies nausea, Denies vomiting Genitourinary: Denies dysuria, Denies hematuria Musculoskeletal: Denies myalgias Integumentary: Denies pruritus, Denies rash Neurological: Denies numbness, Denies weakness Psychiatric: Reports anxiety, Reports depression Past Medical History Past Medical History: Asthma, GERD/Reflux History of Any Multi-Drug Resistant Organisms: None Reported Additional Past Surgical History / Comment(s): D&C 2 Past Anesthesia/Blood Transfusion Reactions: No Reported Reaction Past Psychological History: Bipolar Smoking Status: Current every day smoker Past Alcohol Use History: Occasional Past Drug Use History: None Reported - Past Family History Mother Family Medical History: Asthma, Hypertension Medications and Allergies Home Medications Medication Instructions Recorded Confirmed Type Albuterol Sulfate [Proair Hfa] 2 puff INHALATION QID PRN 10/01/18 11/21/18 History Acetaminophen [Tylenol Extra 500 mg PO Q6H PRN 11/21/18 11/21/18 History Strength] Ranitidine HCl [Zantac] 150 mg PO BID PRN 11/21/18 11/21/18 History Allergies Allergy/AdvReac Type Severity Reaction Status Date / Time No Known Allergies Allergy Verified 11/21/18 18:12 Exam Osteopathic Statement: *. No significant issues noted on an osteopathic structural exam other than those noted in the History and Physical/Consult. HEENT: Within normal limits Heart: Regular rate and rhythm Lungs: Clear to auscultation bilaterally Abdomen: Soft, nontender Pelvic exam: Uterus is small, anteverted, nontender, with no adnexal masses or tenderness noted. Extremities: Negative Homans Assessment and Plan (1) Family planning Status: Acute Code(s): Z30.09 - ENCOUNTER FOR OTH GENERAL CNSL AND ADVICE ON CONTRACEPTION SNOMED Code(s): 466701640 Plan: Proceed with laparoscopic bilateral tubal ligation via fulguration. I have discussed the risks, benefits, and alternative therapies for the above- mentioned procedure and for both sedation/anesthesia as well as necessary blood products administration, if indicated, as they pertain to this patient. The patient has indicated her understanding and acceptance of the risks and procedures discussed.
[~2018-11-25 06:31] MED LIST: DEXAMETHASONE SOD PHOSPHATE 10 MG/ML 1 ML VIAL IV ONE; LACTATED RINGERS 1,000 ML IV SCH; MIDAZOLAM 2 MG/2 ML VIAL IV PRN; ONDANSETRON 4 MG/2 ML VIAL IVP ONE; Pre Op ABX Message 1 EACH MISC MISCELLANE ONE; SCOPOLAMINE 1.5MG/72HR PATCH TRANSDERM ONE
[2018-11-25] MEDS ORDERED: LIDOCAINE 1% 20 ML VIAL (10MG/ML) FOR IV START INTRADERMA ONE (07:03)
[2018-11-25] MEDS ORDERED: fentaNYL (PF) 50 MCG/ML 2 ML AMP ONE (07:32)
[2018-11-25] MEDS ORDERED: KETOROLAC 30 MG/ML 1 ML VIAL ONE (07:32)
[2018-11-25] MEDS ORDERED: LIDOCAINE 1% INJ 10MG/ML (20 ML MDV) ONE (07:32)
[2018-11-25] MEDS ORDERED: ROCURONIUM BROMIDE 10 MG/ML 10 ML VIAL IV ONE (07:32)
[2018-11-25] MEDS ORDERED: PROPOFOL 10 MG/ML 20 ML VIAL IV ONE (07:32)
[2018-11-25] MEDS ORDERED: NEOSTIGMINE 1 MG/ML 10 ML VIAL ONE (07:32)
[2018-11-25] MEDS ORDERED: MIDAZOLAM 2 MG/2 ML VIAL ONE (07:32)
[2018-11-25] MEDS ORDERED: GLYCOPYRROLATE 0.2 MG/ML 2 ML VIAL ONE (07:32)
[2018-11-25] MEDS ORDERED: BUPIVACAINE (PF) 0.25% 30 ML VIAL SQ ONE ×2 (08:00)
--- NOTE | 2018-11-25 08:16 | P.OP ---
Date of Procedure: 11/25/18 Preoperative Diagnosis: Family planning Postoperative Diagnosis: Same Procedure(s) Performed: Laparoscopic bilateral tubal ligation via fulguration Anesthesia: RUBEN Surgeon: Beth Rey Estimated Blood Loss (ml): 5 Pathology: none sent Condition: stable Disposition: same day Indications for Procedure: This is a 28-year-old female 7 para 3 who presents for laparoscopic bilateral tubal ligation via fulguration for family planning. She recently delivered her last child and would like permanent sterilization. Operative Findings: Anteverted uterus sounded to 8 cm. Normal uterus tubes and ovaries are noted. Description of Procedure: The patient is taken to the operating room where she is placed in the dorsal lithotomy position. She is prepped and draped in the normal sterile fashion. Examination is performed under anesthesia. Uterus is found to be in a anteverted position. No adnexal masses were palpated. Next a bivalve speculum was placed in the patient's vagina. A single-tooth tenaculum was used to grasp the anterior lip of the cervix. The uterus was sounded to 8 cm. The kroner uterine manipulator was then inserted through the cervix and the balloon was inflated. The single-tooth tenaculum is removed speculum was removed gloves were changed and attention was turned to the abdomen. The infraumbilical fold was grasped in transverse fashion with 2 Allis clamps. A small transverse incision was made with a scalpel. A hemostat was used to carry the incision down to the underlying layer of fascia. A towel clip was placed above the umbilicus for retraction. A 11 mm disposable bladeless trocar was then inserted into the peritoneal cavity under direct visualization. Once inside, pneumoperitoneum was achieved with CO2 gas. The insert was removed and the camera was placed. Intraperitoneal placement was confirmed. No bleeding was noted. Next the patient was placed in Trendelenburg position. A small stab incision was made suprapubically and a 5 mm disposable bladeless trocar was inserted into the peritoneal cavity under direct visualization. Once inside pelvic contents were inspected. Next a bipolar Kleppinger instrument was placed through the inferior trocar and the midportion of each tube was brought away from other structures and completely fulgurated on approximate 2-3 cm segment of each tube. Excellent hemostasis was noted. A picture was taken. Pneumoperitoneum was released after the inferior trocar was removed under direct visualization. The upper trocar was then removed. The fascial incision was closed with 0 Vicryl suture in interrupted [id number] stitch. The skin incisions were then closed with 4-0 Vicryl suture in a subcuticular fashion. Incision sites were then injected with half percent Marcaine. Approximately 6 mL were used. Next the kroner uterine manipulator was removed. Minimal bleeding was noted. All sponge and needle counts are correct. The patient is then taken to recovery room in stable condition.
[2018-11-25] MEDS: HYDROmorphone 0.5 MG/0.5 ML SYRINGE IVP PRN ×2 (08:28→08:32)
[2018-11-25 08:30] VITALS: TEMP 96.8
[2018-11-25 09:01] VITALS: RESP 18
[2018-11-25 09:15] VITALS: BP 121/85; PULSE 60
== END 2018-11-25 09:40 | disposition home or self-care (01) ==
LOC: OR 06:31
PROVIDERS: ATTEND Obstetrics & Gynecology
DX: Z30.2 Encounter for sterilization (principal); J45.909 Unspecified asthma, uncomplicated; F17.210 Nicotine dependence, cigarettes, uncomplicated; K21.9 Gastro-esophageal reflux disease without esophagitis; F31.9 Bipolar disorder, unspecified; Z79.899 Other long term (current) drug therapy
CPT/HCPCS: 81025; 58670; J2250; J1100; J2710; J2405; J2001; J3010; J1885; J2704; J1170

== ENCOUNTER → 2023-04-04 | Outpatient (CLI) | payer OTHER ==
--- NOTE | 2023-04-04 12:44 | US ---
EXAMINATION TYPE: US transvaginal DATE OF EXAM: 04/04/2023 COMPARISON: NONE CLINICAL INDICATION: Female, 32 years old with history of R10.2 PELVIC AND PERINEAL PAIN; pain TECHNIQUE: Transvaginal (TV EXAM MEASUREMENTS: Uterus: 7.2 x 3.7 x 4.4 cm Endometrial Stripe: .5 cm Right Ovary: 2.9 x 1.8 x 1.8 cm Left Ovary: 2.9 x 1.9 x 2.3 cm 1. Uterus: Anteverted. Couple small cervical nabothian cysts are demonstrated. 2. Endometrium: wnl 3. Right Ovary: Normal follicular change. 4. Left Ovary: follicles seen, largest 1.7 cm 5. Bilateral Adnexa: wnl 6. Posterior cul-de-sac: wnl IMPRESSION: Normal follicular change in the ovaries. Endometrial stripe thickness normal at 5 mm. No specific abn ormality seen.
== END | disposition home or self-care (01) ==
LOC: RADUSWWP 09:53
PROVIDERS: ATTEND Family Medicine
DX: R10.2 Pelvic and perineal pain (principal)
CPT/HCPCS: 76830